=== PATIENT | male | born 1965 | race Caucasian/White ===

== ENCOUNTER 2025-07-08 13:19 | Inpatient (IN) ==
[2025-07-08] MEDS: ASPIRIN CHEW 324 MG PO STA (13:30)
[2025-07-08] MEDS: ONDANSETRON INJ 2 MG/ML 2 ML VIAL IV STA (13:31)
[2025-07-08] MEDS: ONDANSETRON INJ 2 MG/ML 2 ML VIAL ONE ×2 (13:31→16:02)
[2025-07-08] MEDS: SODIUM CHLORIDE 0.9% 1,000 ML IV ONE (13:38)
[2025-07-08] MEDS: NITROGLYCERIN SL 0.4 MG/TAB TAB SL STA (13:40)
[2025-07-08] MEDS: METOPROLOL TARTRATE 1 MG/ML VIAL IV STA (13:41)
[2025-07-08 13:44] LABS: Hematocrit (blood only) 49.2 % (42.0-52.0); Hemoglobin 16.9 g/dl (14.0-18.0); Immature Granulocytes # (auto) 0.06 K/uL (0.01-0.20); Immature Granulocytes % (auto) 0.3 %; Mean Corpuscular Hemoglobin 31.0 pg (25.0-34.0); Mean Corpuscular Volume 90.1 fL (80.0-100.0); Platelet Count 237 K/uL (130-400); RDW Standard Deviation 43.3 fL (36.4-46.3); Red Blood Count 5.46 M/uL (4.70-6.10); White Blood Count 17.36 K/ul (4.8-10.8)
--- NOTE | 2025-07-08 13:50 | XRay Report ---
XR chest 1V portable HISTORY: 60 years-old Male Chest pain, nonspecific COMPARISON: None TECHNIQUE: AP view the chest FINDINGS: Cardiac silhouette is enlarged. No pneumothorax, large pleural effusion or lobar airspace consolidati on. Mild coarsening of interstitium may be chronic. Bones appear grossly intact. Chronic appearing di stal right clavicular deformity. IMPRESSION: Cardiomegaly without acute process. ACT 112: Negative or not required by law. The above report was generated using voice recognition software. It may contain grammatical, syntax o r spelling errors. Electronically signed by: Rashad Red M.D. 07/08/2025 1:48 PM
[2025-07-08 14:01] LABS: Alanine Aminotransferase 74.0 U/L (7-52); Albumin Globulin Ratio 1.4 (0.9-2); Alkaline Phosphatase 86.0 U/L (34-104); Anion Gap 7.0 (3-11); Bilirubin,Total 0.8 mg/dl (0.2-1.0); Blood Urea Nitrogen 10.0 mg/dl (6-23); Calcium 10.0 mg/dl (8.6-10.3); Carbon Dioxide 28.0 mmol/L (21-32); Chloride 102.0 mmol/L (98-107); Creatinine Clr Calc Pharmacy 80.4 ml/min; Globulin 3.1 gm/dl (2.5-4.0); Glucose 136.0 mg/dl (70-99(Fasting)); Lipase 4.0 U/L (11-82); Potassium 4.1 mmol/L (3.5-5.1); Sodium 137.0 mmol/L (136-145); Total Protein 7.5 gm/dl (6.0-8.3)
--- NOTE | 2025-07-08 14:08 | Pre Anesthesia Assessment ---
Date of Service July 08, 2025 Pre Sedation Assessment Vital Signs Pulse Pulse Resp BP BP Pulse Ox O2 Del Method 07/08/25 13:41 102 H 139/89 07/08/25 13:37 105 H 07/08/25 13:32 105 H 19 138/89 95 Room Air 07/08/25 13:32 96 Room Air 07/08/25 13:25 94 Room Air 07/08/25 13:24 108 H 18 134/93 96 Room Air Cardiovascular RRR, no murmur, no edema + regular rate + S1 normal and + S2 normal Respiratory normal respiratory effort, lungs clear to auscultation Pre-Sedation Airway Assessment Smoking Status: Current every day smoker II III NPO Status Date of Last Intake of Fluids: 07/08/25 Procedure Planning Contraindications for Sedation: none Current Medications Reviewed: Yes Notes The planned sedation has been discussed with the patient. Informed Consent was obtained. I have identified the patient, determined the appropriateness of sedation and have assessed the patient immediately prior to the procedure. All medicine(s) and interventions are by my order.
[2025-07-08] MEDS: HEPARIN (PORCINE) 1000 UNIT/ML 10 ML (CATH LAB USE ONLY) ONE ×2 (14:54)
[2025-07-08] MEDS: MIDAZOLAM HCL 1 MG/ML 2ML VIAL ONE (14:54)
[2025-07-08] MEDS: OPTIRAY 350 ONE (14:55)
--- NOTE | 2025-07-08 14:55 | Post Anesthesia Assessment ---
Date of Service July 08, 2025 Post Sedation Assessment Vital Signs Pulse Pulse Resp BP BP Pulse Ox O2 Del Method 07/08/25 14:07 118/75 92 Nasal Cannula 07/08/25 13:41 102 H 139/89 07/08/25 13:37 105 H 07/08/25 13:32 105 H 19 138/89 95 Room Air 07/08/25 13:32 96 Room Air 07/08/25 13:25 94 Room Air 07/08/25 13:24 108 H 18 134/93 96 Room Air O2 Flow Rate 07/08/25 14:07 4 07/08/25 13:41 07/08/25 13:37 07/08/25 13:32 07/08/25 13:32 07/08/25 13:25 07/08/25 13:24 Recovery Score Activity: Moves 4 extremities Respiration: Deep Breath/Cough Circulation: +/-20% PreAnes Value Consciousness: Fully Awake Oxygen Saturation: > 92% On Room Air Discharge Sedation Level of Care: Higher Level of Care Post Sedation Plan On clinical assessment, the patient appears to have tolerated the sedation without complications. Patient is recovering as anticipated. Patient will continue to be monitored by nursing and may be discharged when sedation discharge criteria are met per below protocol. Upon Completions of procedure up to 15 minutes continue every 5 minute vital signs and the P.A.R. score; then discharge to a Phase I or Fast Track to Phase II per the following guidelines: * Discharge Patient to appropriate Phase II area if PAR is 8 or greater or return to pre- procedure baseline. The post - procedure orders will be as directed. * If PAR score is less than 8 or not return to pre-procedure baseline then patient will follow Phase I monitoring till PAR is reached for Phase II. The Phase I may be done in procedure room or may call to secure a Phase I area. * If naloxone or flumazenil are used for reversal, hold in Phase I for continued monitoring from when last reversal dose was given for a minimum of 60 minutes or longer pending the nurse and/or physician discretion of patient condition before discharge to Phase II. Please call the Sedation Physician to re-evaluate and complete post-note for discharge to Phase II area. Do NOT discharge from procedure sedation or Phase 1 until post- sedation evaluation note is complete by procedure /sedation MD Sedation Discharge Instructions to be given to the patient at discharge to home.
[2025-07-08] MEDS: PHENYLEPHRINE 100MCG/ML 5ML SYR ONE (14:56)
[2025-07-08] MEDS: EPTIFIBATIDE 2 MG/ML 10 ML VIAL (CATH LAB USE ONLY) IV ONE (14:56)
[2025-07-08] MEDS: NITROGLYCERIN/D5W 100MCG/ML 20ML SYR ONE (14:56)
[2025-07-08] MEDS: EPTIFIBATIDE 0.75 MG/ML 75MG VIAL (CATH LAB USE ONLY) IV ONE (14:57)
[2025-07-08] MEDS: CLOPIDOGREL BISULFATE 300 MG TAB ONE (14:58)
--- NOTE | 2025-07-08 15:12 | Cardiac Catheterization ---
Cardiac Cath Procedure Full Procedure Date July 08, 2025 Pre-Procedure Diagnosis Pre-Procedure Diagnosis: STEMI AUC Score AUC Score: 9 Post-Procedure Diagnosis Post-Procedure Diagnosis: Severe CAD, Successful PCI, Decreased LV Systolic Function and Elevated Intracardiac Pressures Procedure(s) Performed Procedure(s) Performed: Coronary Angiography, Left Heart Cath, LV Angiography and PTCA Dispensing Lead Marvin Colunga MD Estimated Blood Loss Estimated Blood Loss: 10 cc Summary of Findings culprit: 1% occlusion of the proximal LAD Left Main: Large artery which divides into LAD, ramus intermedius, and circumflex. There is no significant angiographic disease LAD: Large artery takeoff. It is initially 100% occluded. After PCI it is seen to give rise to 1 small diagonal vessel. It does supply multiple septal arteries and Continues to the true apex. Ramus intermedius: Medium sized branching artery with a relatively focal 40 to 50% proximal lesion Circumflex: Medium to large artery gives rise to a small OM1 and a medium sized OM 2. There is no significant angiographic disease RCA: Medium to large artery gives rise to a small PDA and [address] branches. There is 40% proximal disease. The mid AV groove has a focal 30 to 40% stenosis. The branch vessels have mild luminal changes. EF: 25 to 30% There is anterior wall and apical wall akinesis LVEDP: 20 mmHg Procedure details This gentleman was brought to the [facility] emergently. Risks and benefits were discussed. Risks included injury or even . He understood these risks and informed consent was signed and witnessed. He is placed supine on the table. He was prepped and draped in usual sterile fashion. I performed conscious sedation. He was monitored with [id number] contact and hemodynamic monitoring for the entirety of the case. Prior to starting timeout confirmed patient and procedure. 2 mL 1% lidocaine was given the right wrist for local anesthesia. Access to the right radial artery was made using modified Seldinger technique and a micropuncture kit. Eventually a 5 6 Green[place]ic slender sheath was advanced over the wire. All catheter exchanges were made over a wire. A JL 4 was used to take a diagnostic shot of the left system. A JR4 was used for LVEDP measurement and to image of the right system. I then chose an EBU 3.5 guide and a run-through. Heparin was given. ACT was monitored. The run-through was directed with some effort into the LAD territory. Initially I passed a 3.0 NC balloon and no meaningful flow was regained. At the very proximal edge of the occlusion I inflated the balloon to 8 laura. I then passed a 2.0 timesx 12 compliant balloon to the mid anterior wall lesion. Multiple inflations did not restore meaningful flow to the apex. I then passed an export catheter over the wire and gave an injection into the export catheter confirming vessel patency downstream and that the wire was truly in the LAD. I then stented from distal to proximal with a 2.5 x 38 drug-eluting stent at 12 laura followed by a 2.5 x 30 drug-eluting stent at 13 laura followed by a 2.75 x 15 drug-eluting stent deployed at 13 laura. The proximal stent was postdilated with a 3.0 NC balloon. Final angiogram showed complete filling though TIANA II flow to the apical LAD. Radial band was used for hemostasis of the wrist Hemodynamics Rest Ao:: 98/72 Final Ao: 100/76 LV: 115/6, LVEDP 20-25 to 30 mmHg Recommendations Recommendations: Medical Therapy and/or Counseling and Management Recommendatons ( Dual antiplatelet therapy for target of at least 1 year echocardiogram 4 better assessment of LV function. Guideline directed medical therapy for LV systolic dysfunction. Likely will need diuretic therapy given LVEDP is elevated. Maximize lipid-lowering medications and modify risk factors aggre) Radiation Exposure (mGy) 14.3 minutes Contrast (mls) 140 Procedural Complication(s) none I attest to the content of the Intraoperative Record and any orders documented therein. Any exceptions are noted below. ACC Data: [facility] Cardiac Status Clinical evaluation leading to the procedure CAD Presenation: STEMI STEMI OR Non-STEMI Symptom Onset Date: 07/07/25 Symptom Onset Time: 16:00 Coronary Anatomy Dominant: Right LAD (% Stenosis): Proximal ( 100%) RCA (% Stenosis): Proximal ( 40 %) and Mid (30 to 40%) Ramus (% Stenosis): Proximal ( 40 to 50%) Left Ventricular Angiography EF (%): 25-30% Wall Motion: Anterior (Akinetic) and Apical (Akinetic) Diagnostic Physicians Name: Marvin Colunga MD Closure Device Recommendations: Medical Therapy and/or Counseling and Management Recommendatons ( Dual antiplatelet therapy for target of at least 1 year echocardiogram 4 better assessment of LV function. Guideline directed medical therapy for LV systolic dysfunction. Likely will need diuretic therapy given LVEDP is elevated. Maximize lipid-lowering medications and modify risk factors aggre) PCI Indication: PCI for STEMI - Unstable ( ongoing chest pain symptoms less than 12 hours from stated onset) First Noted: First EKG Lesion Segment Name: proximal LAD Stenosis Prior to Rx (%): 100 Pre-Procedure TIANA Flow: 0 Lesion Complexity: High/C Thrombus Present: Yes Guidewire Across Lesion: Yes
--- NOTE | 2025-07-08 15:20 | Cardiology Consultation ---
Date of Consultation July 08, 2025 Assessment & Plan (1) ST elevation myocardial infarction (STEMI) of anterior wall: (2) LV dysfunction: (3) Hyperlipidemia: (4) Smoker: (5) Xanthelasma of eyelid, bilateral: (6) Severe obstructive sleep apnea: Plan unfortunately this is a very late presentation of his anterior AL he will require dual antiplatelet therapy, statin treatment for heart failure prevention including beta-king in all likelihood Entresto as well as Jardiance diuretics to keep heart failure under control. Smoking cessation diet exercise.. Will have to wait and see how he does on medical therapy. Unfortunately because of his late presentation he may. Close cardiac follow-up as well as cardiac rehab. Are strongly recommended to have significant LV dysfunction even despite being able to get the LAD open. The remainder of his coronary tree only had mild plaque. History of Present Illness Reason for Consultation: Acute AL History of Present Illness 60-year-old man without prior cardiac issues who presented to the emergency room with several days of not feeling well. His initial EKG shows Q waves in the lateral as well as anteroseptal leads. He reported having only mild chest discomfort but reports that this has been going on for more than 24 hours. According to his family his daughter girlfriend and son-in-law for the last several days he has had some shortness of breath. He was observed to look more short of breath than normal. He is a lifelong smoker has hypercholesterolemia was recently diagnosed with sleep apnea and was supposed to start wearing CPAP but has not started wearing it. He does not have a regular family doctor that he follows with. He has not had any other cardiac testing at this point. He was taken to the [facility] acutely by Dr. Marvin Colunga and was found to have a proximal total occluded LAD. Dr. Colunga was able to get a wire past the occlusion and eventually implant 3 stents in the LAD with some difficulty. Patient's blood pressure was running 90 to about 110 systolic in the [facility]. At the end of the case a ventriculogram was done and this showed severe anteroa pical hypo to akinesis. His initial troponin is still pending however his transaminases are elevated also suggesting that this AL has been going on for greater than 24 to perhaps 48 hours. 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 I ended up having surgery." Benign colonic polyp hx Diarrhea hx pt denies at this time Anxiety Surgical History Hx of arthroscopy of right knee x2 Hx of colonoscopy History of bowel resection "10 years ago" History of esophagogastroduodenoscopy Hx of tonsillectomy H/O shoulder surgery Right S/P ACL surgery Right - x2 ACL x2 Arthroscopic Family History Other No pertinent family history Denies family history of Ovarian cancer Prostate cancer Diabetes Bipolar disorder Myocardial infarction Breast cancer COPD (chronic obstructive pulmonary disease) Colorectal cancer Hypertension Social History Smoking Status: Current every day smoker Tobacco Type: Cigarettes Age Started Using Tobacco: 50; packs per day: 0.5; Cigarettes Per Day: 10-15; Second Hand Exposure: No; Do You Dip or Chew Tobacco: No; Hx Alcohol Use: Yes Hx Substance Use: Yes Last Used Substance Other:: remote hx Preferred Language: Bulgarian Communication Ability: Effective Telephone Answerer Required: No Beliefs That Will Affect Care: None marital status: Current Living Situation: Alone Current Living Situation Comment: And children current occupational status: employed 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 Feels Safe at Home: Yes caffeine: Yes (coffee and tea) Dental Care, Regularly: No Physical Activity Frequency: Does not Exercise Seatbelt Use: sometimes Sunscreen Use: No Assistive Devices: Glasses Review of Systems Review of Systems: All systems reviewed & are unremarkable except as noted in HPI & below Physical Exam Physical Exam: Patient seen while still in the [facility] Respiratory: Lying flat on [facility] table Cardiovascular: Summation gallop Results & Data Vital Signs (Past 12 Hours) Vital Signs Pulse Pulse Resp BP BP Pulse Ox O2 Del Method 07/08/25 14:07 118/75 92 Nasal Cannula 07/08/25 13:41 102 H 139/89 07/08/25 13:37 105 H 07/08/25 13:32 105 H 19 138/89 95 Room Air 07/08/25 13:32 96 Room Air 07/08/25 13:25 94 Room Air 07/08/25 13:24 108 H 18 134/93 96 Room Air O2 Flow Rate 07/08/25 14:07 4 07/08/25 13:41 07/08/25 13:37 07/08/25 13:32 07/08/25 13:32 07/08/25 13:25 07/08/25 13:24 Laboratory Results Abnormal lab results 07/08/25 07/08/25 Range/Units 13:29 13:31 WBC 17.36 H (4.8-10.8) K/ul Neut # (Auto) 14.02 H (1.40-6.50) K/uL Swift # (Auto) 1.28 H (0.11-0.59) K/uL BUN/Creatinine Ratio 8.3 L (10-20) Glucose 136 H (70-99(Fasting)) mg/dl POC Glucose (other) 133 H (70-99) mg/dl AST 375 H (13-39) U/L ALT 74 H (7-52) U/L Lipase 4 L (11-82) U/L ECG Additional Comments: Normal sinus rhythm lateral as well as anteroseptal Q waves
--- NOTE | 2025-07-08 15:21 | Emergency Department Note ---
Impression & Plan ST elevation TX (STEMI), Chest pain, Vomiting ED Provider Note NAME: DESMOND SAAVEDRA AGE: 60 SEX: M : 1965 ARRIVES VIA: Walk-In INFORMANT: Patient ED PROVIDER(S): Stef Harley DO CHIEF COMPLAINT: chest pain HPI: Patient is a 60-year-old male who presents ER for chest pain which has been constant yesterday across his chest. Associated with nausea and vomiting and diaphoresis. Girlfriend notes that he has not been feeling well when she went over to find him today. He notes that he still has the pain but is much better. Denies any belly pain but admits to feeling sick to his stomach. No dysuria urgency or frequency. No focal weakness in the arms or legs. ADDITIONAL HISTORY OBTAINED: Per HPI Chronic Medical/Social Conditions Affecting Care: Per HPI PAST MEDICAL HISTORY:See Below PAST SURGICAL HISTORY:See Below FAMILY HISTORY:See Below SOCIAL HISTORY:See Below HOME MEDICATIONS:See Below ALLERGIES:See Below VITALS:See Below PHYSICAL EXAMINATION: GENERAL: Sitting up in bed, alert, ill-appearing, dry heaving EYE EXAM: normal conjunctiva. OROPHARYNX: Dry mucous membranes LUNGS: Clear to auscultation. Normal chest wall mechanics HEART: no murmurs, S1 normal and S2 normal ABDOMEN: abdomen soft, non-tender, normo-active bowel sounds, no masses, no rebound or guarding. BACK: Back is symmetrical on inspection and there is no deformity, no midline tenderness, no CVA tenderness. SKIN: no rashes and no bruising UPPER EXTREMITIES: upper extremities are grossly normal. LOWER EXTREMITIES: No pitting edema. NEURO EXAM: Normal sensorium, cranial nerves II-XII grossly intact, normal speech, no gross weakness of arms, no gross weakness of legs. MEDICAL DECISION MAKING: Patient is a 60-year-old male who presents ER for the above-stated complaint. IV was established and blood work is obtained. Labs show leukocytosis 17,000. No significant anemia. D-dimer was negative. BMP along with LFTs bilirubin was remarkable for an AST of 375 and ALT of 74. Lipase was normal. Troponin did not result upon completion of the note however it was greater than 27,000 per report from lab as it needs to be diluted again. Heart alert was called upon arrival and evaluation of the EKG. No old to compare to. Patient was given aspirin, nitro and Lopressor as well as IV bolus of heparin. Consults/Care Managements Discussions: Per [facility] Triage Nursing notes reviewed. Limited review of prior medical records performed Vital Signs: reviewed and remarkable for no significant abnormalities Differential diagnosis: Cardiac ischemia, aortic dissection, pulmonary embolism, pneumothorax, pneumonia, pericarditis, myocarditis, esophageal rupture, GERD, cholecystitis, pancreatitis, musculoskeletal, as well as other pathologies. ER treatment provided: See below Diagnostics interpreted by me include EKG and cardiac monitoring as listed below: -Cardiac Monitoring: An order was placed for continuous cardiac monitoring. The monitor shows a rate of 90 with sinus rhythm. -ECG: Sinus tachycardia rate of 103 ST elevations in the high lateral leads ST depressions in the inferior leads Q waves in the high lateral and anterior leads No old compare to -Laboratory studies:Interpreted by me as stated above in MDM and shown below. Imaging studies: Xrays: As interpreted by me: Portable AP upright 1 view of the chest shows no focal M-Trate CTs show: none Procedures:none Critical Care: I have personally spent 35 minutes of critical care time in the direct management of this patient. This includes bedside care, interpretation of diagnostic studies, and testing, discussion with consultants, patient, and family members, and other required patient management activities. This 35 minutes is in excess of all separately billable procedures. Past Med/Surg History Problem List (Updated 07/08/25 @ 15:16 by Anuradha Hopkins DO) LV dysfunction ST elevation myocardial infarction (STEMI) of anterior wall History of colon polyps Nocturnal hypoxemia Severe obstructive sleep apnea Hypersomnia History of kidney stones Right knee pain Insomnia Chronic reflux esophagitis GI symptoms Nasal congestion Impaired fasting glucose Hyperlipidemia Smoker 21 patient reports smoking for 5 years after his divorce. 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 I ended up having surgery." Benign colonic polyp hx Diarrhea hx pt denies at this time Anxiety Surgical History Hx of arthroscopy of right knee x2 Hx of colonoscopy History of bowel resection "10 years ago" History of esophagogastroduodenoscopy Hx of tonsillectomy H/O shoulder surgery Right S/P ACL surgery Right - x2 ACL x2 Arthroscopic Family History Other No pertinent family history Denies family history of Ovarian cancer Prostate cancer Diabetes Bipolar disorder Myocardial infarction Breast cancer COPD (chronic obstructive pulmonary disease) Colorectal cancer Hypertension Social History Smoking Status: Current every day smoker Tobacco Type: Cigarettes Age Started Using Tobacco: 50; packs per day: 0.5; Cigarettes Per Day: 10-15; Second Hand Exposure: No; Do You Dip or Chew Tobacco: No; Hx Alcohol Use: Yes Hx Substance Use: Yes Last Used Substance Other:: remote hx Preferred Language: Martiniquais Communication Ability: Effective Ict Sales Assistant Required: No Beliefs That Will Affect Care: None marital status: Current Living Situation: Alone Current Living Situation Comment: And children current occupational status: employed 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 Feels Safe at Home: Yes caffeine: Yes (coffee and tea) Dental Care, Regularly: No Physical Activity Frequency: Does not Exercise Seatbelt Use: sometimes Sunscreen Use: No Assistive Devices: Glasses Allergies Allergies Allergy/AdvReac Type Severity Reaction Status Date / Time morphine AdvReac Intermediate Vomiting Verified 02/16/25 10:10 Home Meds Previous Rx's Medication Instructions Recorded nicotine 7 mg/24 hr daily 1 patch transdermal Q24H #28 ea 09/13/24 transdermal patch Results & Data (ED) Vital Signs Vital Signs - 24 hr 07/08/25 13:24 07/08/25 13:25 07/08/25 13:32 Pulse Rate 108 H Pulse Rate [Apical] Respiratory Rate 18 Blood Pressure 134/93 Blood Pressure [Right Arm] Blood Pressure Mean 106 Blood Pressure Mean [Right Arm] Pulse Oximetry 96 94 96 Oxygen Delivery Method Room Air Room Air Room Air Sepsis Recent Fever Within 48 Hours No Sepsis New/Unexplained Change in Mental Status No Sepsis Action Taken by Nursing No Action Required 07/08/25 13:32 07/08/25 13:37 07/08/25 13:41 Pulse Rate 105 H 102 H Pulse Rate [Apical] 105 H Respiratory Rate 19 Blood Pressure 139/89 Blood Pressure [Right Arm] 138/89 Blood Pressure Mean Blood Pressure Mean [Right Arm] 105 Pulse Oximetry 95 Oxygen Delivery Method Room Air Sepsis Recent Fever Within 48 Hours Sepsis New/Unexplained Change in Mental Status Sepsis Action Taken by Nursing Laboratory Data 07/08/25 13:29 07/08/25 13:29 Lab Results 07/08/25 07/08/25 Range/Units 13:29 13:31 WBC 17.36 H (4.8-10.8) K/ul RBC 5.46 (4.70-6.10) M/uL Hgb 16.9 (14.0-18.0) g/dl POC Hgb 17.7 (14.0-18.0) g/dl Hct 49.2 (42.0-52.0) % POC Hct 52 (42-52) % MCV 90.1 (80.0-100.0) fL MCH 31.0 (25.0-34.0) pg MCHC 34.3 (32.0-36.0) g/dL RDW Std Deviation 43.3 (36.4-46.3) fL RDW Coeff of Patsy 13.2 (11.5-14.5) % Plt Count 237 (130-400) K/uL MPV 9.7 (9.4-12.4) fL Immature Gran % (Auto) 0.3 % Neut % (Auto) 80.7 % Lymph % (Auto) 11.1 % Kidder % (Auto) 7.4 % Eos % (Auto) 0.2 % Baso % (Auto) 0.3 % Neut # (Auto) 14.02 H (1.40-6.50) K/uL Lymph # (Auto) 1.92 (1.20-3.40) K/uL Kidder # (Auto) 1.28 H (0.11-0.59) K/uL Eos # (Auto) 0.03 (0.00-0.50) K/uL Baso # (Auto) 0.05 (0.00-0.20) K/uL Immature Gran # (Auto) 0.06 (0.01-0.20) K/uL D-Dimer 360 (0-500) ug/L FEU POC Sodium 139 (135-144) mmol/L Sodium 137 (136-145) mmol/L POC Potassium 4.1 (3.3-5.0) mmol/L Potassium 4.1 (3.5-5.1) mmol/L POC Chloride 102 (101-112) mmol/L Chloride 102 (98-107) mmol/L Carbon Dioxide 28 (21-32) mmol/L POC Total CO2 24 (24-31) mmol/L Anion Gap 7 (3-11) POC Anion Gap 18.0 (16-25) mmol/L POC BUN 8 (7-18) mg/dl BUN 10 (6-23) mg/dl Creatinine 1.21 (0.6-1.4) mg/dl POC Creatinine 1.2 (0.6-1.3) mg/dl Est Cr Clr Drug Dosing 80.4 ml/min eGFR 69.40 BUN/Creatinine Ratio 8.3 L (10-20) Glucose 136 H (70-99(Fasting)) mg/dl POC Glucose (other) 133 H (70-99) mg/dl Calcium 10.0 (8.6-10.3) mg/dl POC Ioniz Calcium Bonny 1.18 (1.12-1.32) mmol/l Total Bilirubin 0.8 (0.2-1.0) mg/dl AST 375 H (13-39) U/L ALT 74 H (7-52) U/L Alkaline Phosphatase 86 (34-104) U/L Total Protein 7.5 (6.0-8.3) gm/dl Albumin 4.4 (3.4-5.0) gm/dl Globulin 3.1 (2.5-4.0) gm/dl Albumin/Globulin Ratio 1.4 (0.9-2) Lipase 4 L (11-82) U/L Administered Medications Discontinued Medications Aspirin (Aspirin Chew 324 Mg) 324 mg PO NOW STA Stop: 07/08/25 13:28 Last Admin: 07/08/25 13:30 Dose: 324 mg Documented By: PADMAJA Clopidogrel Bisulfate (Clopidogrel Bisulfate 300 Mg Tab) Confirm Administered Dose 600 mg .ROUTE .STK-MED ONE Stop: 07/08/25 14:52 Last Admin: 07/08/25 14:58 Dose: 600 mg Documented By: ALIZE Eptifibatide (Eptifibatide 2 Mg/Ml 10 Ml Vial (Doorperson Or Luggage Porter Use Only)) Confirm Administered Dose 40 mg IV .STK-MED ONE Stop: 07/08/25 14:41 Last Admin: 07/08/25 14:56 Dose: 10.2 ml Documented By: ALIZE Eptifibatide (Eptifibatide 0.75 Mg/Ml 75mg Vial (Doorperson Or Luggage Porter Use Only)) Confirm Administered Dose 75 mg IV .STK-MED ONE Stop: 07/08/25 14:41 Last Admin: 07/08/25 14:57 Dose: 75 mg Documented By: ALIZE Fentanyl Citrate (Fentanyl Citrate Pf 100 Mcg/2 Ml Vial) Confirm Administered Dose 100 mcg .ROUTE .STK-MED ONE Stop: 07/08/25 13:53 Last Increment: 07/08/25 14:54 Dose: 75 mcg Documented By: ALIZE Heparin Sodium (Porcine) (Heparin (Porcine) 1000 Unit/Ml 10 Ml (Doorperson Or Luggage Porter Use Only)) Confirm Administered Dose 10,000 units .ROUTE .STK-MED ONE Stop: 07/08/25 13:53 Last Admin: 07/08/25 14:54 Dose: 10,000 units Documented By: ALIZE Heparin Sodium (Porcine) (Heparin (Porcine) 1000 Unit/Ml 10 Ml (Doorperson Or Luggage Porter Use Only)) Confirm Administered Dose 10,000 units .ROUTE .STK-MED ONE Stop: 07/08/25 14:22 Last Admin: 07/08/25 14:54 Dose: 1,000 units Documented By: ALIZE Heparin Sodium/Sodium Chloride (Heparin In Nss Infusion 1000 Unit/500 Ml (2 U/Ml) Bag) Confirm Administered Dose 3,000 units IV .STK-MED ONE Stop: 07/08/25 13:53 Last Admin: 07/08/25 14:55 Dose: 3,000 units Documented By: ALIZE Sodium Chloride (Nss) 1,000 mls @ 999 mls/hr IV .Q1H1M ONE Stop: 07/08/25 14:36 Last Admin: 07/08/25 13:38 Dose: 999 mls/hr Documented By: CHUCK Ioversol (Optiray 350) Confirm Administered Dose 1 ml .ROUTE .STK-MED ONE Stop: 07/08/25 13:53 Last Admin: 07/08/25 14:55 Dose: 140 ml Documented By: ALIZE Metoprolol Tartrate (Metoprolol Tartrate 1 Mg/Ml Vial) 5 mg IV NOW STA Stop: 07/08/25 13:37 Last Admin: 07/08/25 13:41 Dose: 5 mg Documented By: CHUCK Midazolam HCl (Midazolam Hcl 1 Mg/Ml 2ml Vial) Confirm Administered Dose 2 mg .ROUTE .STK-MED ONE Stop: 07/08/25 13:52 Last Admin: 07/08/25 14:54 Dose: 2 mg Documented By: ALIZE Nitroglycerin (Nitroglycerin Sl 0.4 Mg/Tab Tab) 0.4 mg SL NOW STA Stop: 07/08/25 13:37 Last Admin: 07/08/25 13:40 Dose: 0.4 mg Documented By: CHUCK Nitroglycerin/Dextrose (Nitroglycerin/D5w 100mcg/Ml 20ml Syr) Confirm Administered Dose 2,000 mcg .ROUTE .STK-MED ONE Stop: 07/08/25 13:53 Last Admin: 07/08/25 14:56 Dose: 2,000 mcg Documented By: ALIZE Ondansetron HCl (Ondansetron Inj 2 Mg/Ml 2 Ml Vial) 4 mg IV NOW STA Stop: 07/08/25 13:30 Last Admin: 07/08/25 13:31 Dose: 4 mg Documented By: PADMAJA Ondansetron HCl (Ondansetron Inj 2 Mg/Ml 2 Ml Vial) Confirm Administered Dose 4 mg .ROUTE .STK-MED ONE Stop: 07/08/25 13:31 Last Admin: 07/08/25 13:31 Dose: Not Given Documented By: PADMAJA Phenylephrine HCl (Phenylephrine 100mcg/Ml 5ml Syr) Confirm Administered Dose 100 mcg .ROUTE .STK-MED ONE Stop: 07/08/25 14:22 Last Admin: 07/08/25 14:56 Dose: 500 mcg Documented By: ALIZE Co-signed By: BOOKER Imaging Data Radiologist's Impression: Chest X-Ray 07/08/25 13:27 XR chest 1V portable HISTORY: 60 years-old Male Chest pain, nonspecific COMPARISON: None TECHNIQUE: AP view the chest FINDINGS: Cardiac silhouette is enlarged. No pneumothorax, large pleural effusion or lobar airspace consolidation. Mild coarsening of interstitium may be chronic. Bones appear grossly intact. Chronic appearing distal right clavicular deformity. IMPRESSION: Cardiomegaly without acute process. ACT 112: Negative or not required by law. The above report was generated using voice recognition software. It may contain grammatical, syntax or spelling errors. Electronically signed by: Rashad Red M.D. 07/08/2025 1:48 PM Discharge Plan Visit Data Chief Complaint: Chest Pain Stated Complaint: CHEST HURT YEST, PALE, CONFUSION, BURNING CARPETS ED Provider: Stef Harley Discharge Problem: ST elevation TX (STEMI), Chest pain, Vomiting Patient Disposition: Admitted As Inpatient Condition: Critical Discharge Instructions Interventions: ED Discharge Assessment Last Done: 07/08/25 14:07 Discharge Problem: ST elevation TX (STEMI) Qualifiers: Involved coronary artery: unspecified coronary artery Qualified Code(s): I21.3 - ST elevation (STEMI) myocardial infarction of unspecified site Chest pain Qualifiers: Chest pain type: unspecified Qualified Code(s): R07.9 - Chest pain, unspecified Vomiting Qualifiers: Vomiting type: unspecified Nausea presence: unspecified Qualified Code(s): R 11.10 - Vomiting, unspecified
--- NOTE | 2025-07-08 15:24 | Critical Care Consultation ---
Date of Consultation July 08, 2025 Assessment & Plan (1) ST elevation myocardial infarction (STEMI) of anterior wall: (2) Severe obstructive sleep apnea: (3) Smoker: (4) Nausea & vomiting: (5) Xanthelasma of eyelid, bilateral: Plan -- STEMI S/p 3 stents to the LAD on 07/08/2025 Continue dual antiplatelet therapy Add beta-blockers and CHRISTOPHER inhibitor as blood pressure tolerates Trend EKG and troponins -- Acute hypoxic respiratory failure Likely secondary to pulmonary edema from STEMI -- ANIVAL Polysomnography 10/24/2024: AHI 67 Continue with BiPAP/CPAP nightly and as needed shortness of breath --Current smoker > [id number] smoking history, currently smoking a pack a day Reports quitting explained the patient in depth Recommend outpatient PFT as well as screening CAT scan of the chest --Prophylaxis VTE: IPC, start heparin tomorrow GI: Pantoprazole Lines: Peripheral Diet: Cardiac Plan: Strict ins/out Monitor troponin trend EKG CPAP nightly and as needed shortness of breath Follow-up lipid profile, 2D echo Patient has history of noncompliance. Importance of taking medication moving forward especially DAPT given the stent explained to the patient as well as patient's family at bedside Patient did complain of dry heaving and vomiting for which Zofran was started Repeat EKG was done which did not show any significant change compared to post cath EKG Given that he is wheezing a little bit we will start the patient on formoterol and budesonide nebulized On discharge he will benefit from Stiolto to be used on a daily basis Recommend outpatient pulmonary function test as well as screening CAT scan of the chest given the smoking history Case discussed with cardiology I have personally spent 36 minutes of critical care time in the direct management of this patient. This is a life/limb threatening event. This includes time spent evaluating patient, direct bedside care, chart review, placing orders, interpretation of diagnostic studies, discussion with consultants, patient, and family members, as well as other required patient management activities. This time is exclusive of all separately billable procedures, and teaching time and separate from and in addition to any other critical care service time. Please note the above document was generated using voice recognition software. It may contain grammatical, syntax or spelling errors. History of Present Illness Attending Physician: Tg Solorzano MD History of Present Illness 60-year-old male came to the hospital with chest pain, was found to have NSTEMI and sent to the Desktop Analyst which needed 3 stents in the LAD Past medical history: Dyslipidemia, ANIVAL, active smoker At the time of examination patient's daughter as well as girlfriend were in the room Patient blood pressure was in the 120s heart rate in the 80s He was saturating 92-93% on room air He stated that the chest pain has improved. It was 1/10 on the pain scale. He has been having issues with chest discomfort with pain 7/10 since yesterday He took aspirin ibuprofen for it but it did not help. Denies any dizziness, lightheadedness right now. Complains of generalized lethargy and weakness. Denies any shortness of breath right now No cough No fever or chills at home No dysuria or diarrhea Social history: > [id number] smoking history, currently smoking a pack a day. 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 I ended up having surgery." Benign colonic polyp hx Diarrhea hx pt denies at this time Anxiety Surgical History Hx of arthroscopy of right knee x2 Hx of colonoscopy History of bowel resection "10 years ago" History of esophagogastroduodenoscopy Hx of tonsillectomy H/O shoulder surgery Right S/P ACL surgery Right - x2 ACL x2 Arthroscopic Family History Other No pertinent family history Denies family history of Ovarian cancer Prostate cancer Diabetes Bipolar disorder Myocardial infarction Breast cancer COPD (chronic obstructive pulmonary disease) Colorectal cancer Hypertension Social History Smoking Status: Current every day smoker Tobacco Type: Cigarettes Age Started Using Tobacco: 50; packs per day: 0.5; Cigarettes Per Day: 20; Second Hand Exposure: No; Do You Dip or Chew Tobacco: No; Hx Alcohol Use: Yes Alcohol type: beer and hard liquor Hx Substance Use: No Preferred Language: Nauruan Communication Ability: Effective Blankbook Stitching Machine Operator Required: No Beliefs That Will Affect Care: None marital status: Current Living Situation: Alone Current Living Situation Comment: And children current occupational status: employed 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 Other Information That Helps Us Care for You: No Feels Safe at Home: Yes caffeine: Yes (coffee and tea) Dental Care, Regularly: No Physical Activity Frequency: Does not Exercise Seatbelt Use: sometimes Sunscreen Use: No Assistive Devices: Glasses Review of Systems 2 Review of Systems: All systems reviewed & are unremarkable except as noted in HPI & below Physical Exam 2 Physical Exam: Constitutional: No acute distress HEENT: EOMI, PERRLA, short thick neck, xanthelasma bilateral eyelids superior and inferior Respiratory system: Decreased air entry bilaterally, no rhonchi, positive mild crackles bilateral lower lobes, mild rhonchi bilaterally CVS: S1-S2 positive, no murmurs or gallops Abdomen: Soft, nontender, nondistended, positive bowel sounds x4, obese Extremities: +2 pulses bilaterally radialis/ dorsalis pedis, no cyanosis, no edema Neuro: Awake alert oriented x3 Psych: Normal mood and affect G/U: No Feldman Skin: no rashes, warm and dry Lymphatic: no cervical or axillary lymphadenopathy Results & Data Results & Data Vital Signs (Past 12 Hours) Vital Signs Pulse Pulse Resp BP BP Pulse Ox O2 Del Method 07/08/25 14:07 118/75 92 Nasal Cannula 07/08/25 13:41 102 H 139/89 07/08/25 13:37 105 H 07/08/25 13:32 105 H 19 138/89 95 Room Air 07/08/25 13:32 96 Room Air 07/08/25 13:25 94 Room Air 07/08/25 13:24 108 H 18 134/93 96 Room Air O2 Flow Rate 07/08/25 14:07 4 07/08/25 13:41 07/08/25 13:37 07/08/25 13:32 07/08/25 13:32 07/08/25 13:25 07/08/25 13:24 Laboratory Results 07/08/25 13:29 07/08/25 13:29 Coding Level of Care Code 19861 CRITICAL CARE 1ST 30-74M Diagnoses ST elevation myocardial infarction (STEMI) of anterior wall I21.09 Severe obstructive sleep apnea G47.33 Smoker F17.200 Nausea & vomiting R11.2 Xanthelasma of eyelid, bilateral H02.63; H02.66
[2025-07-08] MEDS: ONDANSETRON INJ 2 MG/ML 2 ML VIAL IV PRN (16:02)
[2025-07-08 16:53] LABS: Magnesium 2.1 mg/dl (1.7-2.4)
--- NOTE | 2025-07-08 16:56 | History & Physical Report ---
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 Associated nausea, vomiting and diaphoresis. He denies any history of heart attack or stroke. Pain has been constant. Nothing making it better or worse. Severity 09/07, currently / post cardiac cath. He smokes a pack a day but denies any diabetes, hypertension or high cholesterol. Patient seen post cardiac cath. Allergies Allergy/AdvReac Type Severity Reaction Status Date / Time morphine AdvReac Intermediate Vomiting Verified 02/16/25 10:10 Home Medications Medication Instructions Recorded Confirmed Type nicotine 7 mg/24 hr daily 1 patch transdermal Q24H #28 ea 09/13/24 02/16/25 Rx transdermal patch Past Med/Surg History Problem List (Updated 07/08/25 @ 16:43 by Malgorzata Victor MD, [facility]) Nausea & vomiting LV dysfunction ST elevation myocardial infarction (STEMI) of anterior wall History of colon polyps Nocturnal hypoxemia Severe obstructive sleep apnea Hypersomnia History of kidney stones Right knee pain Insomnia Chronic reflux esophagitis GI symptoms Nasal congestion Impaired fasting glucose Hyperlipidemia Smoker 07-22-19 patient reports smoking for 5 years after his divorce. 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 I ended up having surgery." Benign colonic polyp hx Diarrhea hx pt denies at this time Anxiety Surgical History Hx of arthroscopy of right knee x2 Hx of colonoscopy History of bowel resection "10 years ago" History of esophagogastroduodenoscopy Hx of tonsillectomy H/O shoulder surgery Right S/P ACL surgery Right - x2 ACL x2 Arthroscopic Family History Other No pertinent family history Denies family history of Ovarian cancer Prostate cancer Diabetes Bipolar disorder Myocardial infarction Breast cancer COPD (chronic obstructive pulmonary disease) Colorectal cancer Hypertension Social History Smoking Status: Current every day smoker Tobacco Type: Cigarettes Age Started Using Tobacco: 50; packs per day: 0.5; Cigarettes Per Day: 20; Second Hand Exposure: No; Do You Dip or Chew Tobacco: No; Hx Alcohol Use: Yes Alcohol type: beer and hard liquor Hx Substance Use: No Preferred Language: Urdu Communication Ability: Effective 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: No Beliefs That Will Affect Care: None marital status: Current Living Situation: Alone Current Living Situation Comment: And children current occupational status: employed 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 Other Information That Helps Us Care for You: No Feels Safe at Home: Yes caffeine: Yes (coffee and tea) Dental Care, Regularly: No Physical Activity Frequency: Does not Exercise Seatbelt Use: sometimes Sunscreen Use: No Assistive Devices: Glasses Physical Exam Constitutional: WD/WN, vitals as above ENMT: external ear and nose normal, oropharynx normal Respiratory: normal respiratory effort, lungs clear to auscultation Cardiovascular: RRR, no murmur, no edema Gastrointestinal (Abdomen): normal bowel sounds, soft, nontender, no hepatosplenomegaly Results & Data Results & Data Vital Signs (Past 12 Hours) Vital Signs Temp Pulse Pulse Resp BP BP BP 07/08/25 15:15 37.0 C 82 16 121/86 07/08/25 14:07 118/75 07/08/25 13:41 102 H 139/89 07/08/25 13:37 105 H 07/08/25 13:32 105 H 19 138/89 07/08/25 13:32 07/08/25 13:25 07/08/25 13:24 108 H 18 134/93 Pulse Ox O2 Del Method O2 Flow Rate 07/08/25 15:15 93 Room Air 07/08/25 14:07 92 Nasal Cannula 4 07/08/25 13:41 07/08/25 13:37 07/08/25 13:32 95 Room Air 07/08/25 13:32 96 Room Air 07/08/25 13:25 94 Room Air 07/08/25 13:24 96 Room Air Laboratory Results Abnormal lab results 07/08/25 07/08/25 07/08/25 Range/Units 13:29 13:31 15:36 WBC 17.36 H (4.8-10.8) K/ul Neut # (Auto) 14.02 H (1.40-6.50) K/uL [place] # (Auto) 1.28 H (0.11-0.59) K/uL BUN/Creatinine Ratio 8.3 L (10-20) Glucose 136 H (70-99(Fasting)) mg/dl POC Glucose 125 H (70-99) mg/dl POC Glucose (other) 133 H (70-99) mg/dl AST 375 H (13-39) U/L ALT 74 H (7-52) U/L Troponin I High Sens 00285.6 H* (0-20) pg/ml Lipase 4 L (11-82) U/L Diagnostic Findings XR chest 1V portable HISTORY: 60 years-old Male Chest pain, nonspecific COMPARISON: None TECHNIQUE: AP view the chest FINDINGS: Cardiac silhouette is enlarged. No pneumothorax, large pleural effusion or lobar airspace consolidation. Mild coarsening of interstitium may be chronic. Bones appear grossly intact. Chronic appearing distal right clavicular deformity. IMPRESSION: Cardiomegaly without acute process. Medications Administered ER Medications Given: Aspirin 324mg PO Ondansetron 4mg IV Metoprolol 5g IV Nitroglycerin 0.4mg SL Normal saline 1000ml bolus ECG Rate (beats per minute): 103 Rhythm: sinus tachycardia Findings: + ST elevation (Anterolateral) Comparison ECG Date: no prior available Code Status & VTE Plan Code Status Full PG Care Time/CCT Total # of Minutes Spent Total Time Spent with Patient: Total time spent is greater than 50% in coordination of care (as documented) at patient's floor/unit and/or counseling patient: Coding Level of Care Code 69927 INT INP/OBS CARE 3/75MIN Diagnoses ST elevation myocardial infarction (STEMI) of anterior wall I21.09
[2025-07-08] MEDS: HEPARIN SOD (PORCINE) 1000 UNIT/ML IV ONE (17:10)
[2025-07-08] MEDS: PANTOprazole 40 MG/10 ML SYR IV SCH (17:12)
[2025-07-08 17:36] LABS: Cholesterol 202.0 mg/dl (0-200); HDL Cholesterol 37.0 mg/dl; Triglycerides 67.0 mg/dl (0-150)
[2025-07-08] MEDS: NITROGLYCERIN 2% OINTMENT 30GM TUBE EXT SCH (17:38)
[2025-07-08] MEDS: FORMOTEROL 20 MCG/2 ML VIAL NEB SCH (19:21)
[2025-07-08] MEDS: BUDESONIDE 0.5 MG/2 ML VIAL (PULMICORT) NEB SCH (19:21)
[2025-07-08] MEDS: METOPROLOL SUCC 25MG EXT REL TAB PO SCH (21:26)
[2025-07-08] MEDS: HEPARIN SOD 5,000 UNIT/0.5 ML VIAL SQ SCH (21:26)
[2025-07-09 05:44] LABS: Hematocrit (blood only) 44.8 % (42.0-52.0); Hemoglobin 14.9 g/dl (14.0-18.0); Immature Granulocytes # (auto) 0.08 K/uL (0.01-0.20); Immature Granulocytes % (auto) 0.5 %; Mean Corpuscular Hemoglobin 30.5 pg (25.0-34.0); Mean Corpuscular Volume 91.8 fL (80.0-100.0); Platelet Count 201 K/uL (130-400); RDW Standard Deviation 45.8 fL (36.4-46.3); Red Blood Count 4.88 M/uL (4.70-6.10); White Blood Count 15.28 K/ul (4.8-10.8)
[2025-07-09 05:55] LABS: Anion Gap 5.0 (3-11); Calcium 8.9 mg/dl (8.6-10.3); Carbon Dioxide 28.0 mmol/L (21-32); Chloride 104.0 mmol/L (98-107); Magnesium 2.1 mg/dl (1.7-2.4); Potassium 4.6 mmol/L (3.5-5.1); Sodium 137.0 mmol/L (136-145)
[2025-07-09 06:01] LABS: Blood Urea Nitrogen 13.0 mg/dl (6-23); Creatinine Clr Calc Pharmacy 85.4 ml/min; Glucose 110.0 mg/dl (70-99(Fasting))
--- NOTE | 2025-07-09 08:21 | Electrocardiogram Report ---
Test Reason : Blood Pressure : */* mmHG Vent. Rate : 103 BPM Atrial Rate : 103 BPM P-R Int : 158 ms QRS Dur : 74 ms QT Int : 326 ms P-R-T Axes : -19 164 -15 degrees QTcB Int : 427 ms Sinus tachycardia Low voltage QRS Possible Inferior infarct , age undetermined Anterolateral infarct , possibly acute ACUTE IN / STEMI Abnormal ECG No previous ECGs available Confirmed by Anuradha Hopkins (Cornelio) on 07/09/2025 8:21:38 AM Referred By: Tg Solorzano Confirmed By: Anuradha Hopkins
--- NOTE | 2025-07-09 08:22 | Electrocardiogram Report ---
Test Reason : Blood Pressure : */* mmHG Vent. Rate : 80 BPM Atrial Rate : 80 BPM P-R Int : 168 ms QRS Dur : 76 ms QT Int : 388 ms P-R-T Axes : -11 172 -18 degrees QTcB Int : 447 ms Normal sinus rhythm Low voltage QRS Inferior infarct (cited on or before 08-Jul-2025) Anterolateral infarct (cited on or before 08-Jul-2025) Abnormal ECG When compared with ECG of 08-Jul-2025 13:24, (unconfirmed) Serial changes of Anterior infarct Present Confirmed by Anuradha Hopkins (Cornelio) on 07/09/2025 8:21:59 AM Referred By: Tg Solorzano Confirmed By: Anuradha Hopkins
--- NOTE | 2025-07-09 08:22 | Electrocardiogram Report ---
Test Reason : Blood Pressure : */* mmHG Vent. Rate : 90 BPM Atrial Rate : 90 BPM P-R Int : 156 ms QRS Dur : 78 ms QT Int : 344 ms P-R-T Axes : 63 109 65 degrees QTcB Int : 420 ms Normal sinus rhythm Anterolateral infarct (cited on or before 08-Jul-2025) Abnormal ECG When compared with ECG of 08-Jul-2025 15:18, (unconfirmed) No significant change was found Confirmed by Anuradha Hopkins (Cornelio) on 07/09/2025 8:22:22 AM Referred By: Tg Solorzano Confirmed By: Anuradha Hopkins
--- NOTE | 2025-07-09 08:22 | Electrocardiogram Report ---
Test Reason : Blood Pressure : */* mmHG Vent. Rate : 88 BPM Atrial Rate : 88 BPM P-R Int : 158 ms QRS Dur : 82 ms QT Int : 370 ms P-R-T Axes : 58 103 69 degrees QTcB Int : 447 ms Normal sinus rhythm Low voltage QRS Anterolateral infarct (cited on or before 08-Jul-2025) Abnormal ECG When compared with ECG of 08-Jul-2025 13:53, (unconfirmed) QRS axis Shifted left Criteria for Inferior infarct are no longer Present Questionable change in initial forces of Anterior leads T wave inversion no longer evident in Inferior leads T wave amplitude has decreased in Lateral leads Confirmed by Anuradha Hopkins (Cornelio) on 07/09/2025 8:22:11 AM Referred By: Tg Solorzano Confirmed By: Anuradha Hopikns
--- NOTE | 2025-07-09 08:33 | Cardiology Progress Note ---
Date of Service July 09, 2025 Assessment & Plan (1) ST elevation myocardial infarction (STEMI) of anterior wall: (2) LV dysfunction: (3) Hyperlipidemia: (4) Smoker: (5) Xanthelasma of eyelid, bilateral: (6) Severe obstructive sleep apnea: Plan unfortunately this is a very late presentation of his anterior UT he will require dual antiplatelet therapy, statin treatment for heart failure prevention including beta-king in all likelihood Entresto as well as Jardiance diuretics to keep heart failure under control. Smoking cessation diet exercise. Will have to wait and see how he does on medical therapy. I am concerned that he has marginal BP and may limit medical therapy. Unfortunately because of his late presentation he may. Close cardiac follow-up as well as cardiac rehab. Are strongly recommended to have significant LV dysfunction even despite being able to get the LAD open. The remainder of his coronary tree only had mild plaque. Will recheck limited ECHO on Wednesday to see if any change in LVEF. Attempt to max meds. Will need life vest if EF remains < 35% Admission and Anticipated Discharge Date Admission Date: July 08, 2025 Subjective Overnight did ok no further CP on NTP BP marginal at best remains tachy; 1 dose of metoprolol rec'd last pm Review of Systems Review of Systems: All systems reviewed & are unremarkable except as noted in HPI & below Physical Exam Physical Exam: lying comfortable in bed denies SOB at rest Respiratory: diminished b/l Cardiovascular: summation gallop noted tachycardia no edema Results & Data Vital Signs (Past 12 Hours) Vital Signs Temp Pulse Resp BP Pulse Ox O2 Del Method O2 Flow Rate 07/09/25 07:36 110 H 22 82/54 L 94 Nasal Cannula 2 07/09/25 07:30 104 H 25 H 89/87 L 95 Nasal Cannula 2 07/09/25 07:03 108 H 23 105/76 92 Nasal Cannula 2 07/09/25 07:00 Nasal Cannula 2 07/09/25 05:30 104/66 07/09/25 05:27 104 H 28 H 94 07/09/25 05:18 100 H 27 H 94 07/09/25 05:00 102/70 07/09/25 04:54 100 H 27 H 94 07/09/25 04:36 99 H 26 H 96 07/09/25 04:30 92/60 L 07/09/25 04:21 99 H 25 H 95 08/11/25 04:00 99 H 31 H 96 07/09/25 04:00 37 C 86/58 L 07/09/25 03:33 97 H 28 H 94 07/09/25 03:30 106/69 07/09/25 03:18 95 H 27 H 91 07/09/25 03:05 97 H 26 H 92 3 07/09/25 03:00 100 H 27 H 92 07/09/25 02:30 96 H 29 H 94 07/09/25 02:30 94/67 L 07/09/25 02:18 98 H 28 H 91 07/09/25 02:00 91/64 L 07/09/25 01:51 99 H 24 92 07/09/25 01:32 91/59 L 07/09/25 01:30 92 H 24 95 07/09/25 01:03 102 H 32 H 94 07/09/25 01:00 106/70 07/09/25 00:57 103 H 24 95 07/09/25 00:35 100 H 26 H 96 07/09/25 00:23 102 H 26 H 95 07/09/25 00:00 119/89 07/09/25 00:00 37.1 C 119/89 07/08/25 23:56 88 23 99 07/08/25 23:56 93 H 07/08/25 23:39 90 18 95 07/08/25 23:30 112/75 07/08/25 23:20 90 24 95 07/08/25 23:05 93 H 26 H 95 07/08/25 23:00 37.1 C 115/76 07/08/25 22:42 90 23 97 07/08/25 22:33 95 H 24 97 07/08/25 22:30 104/73 07/08/25 22:27 91 H 25 H 94 07/08/25 22:15 97 H 25 H 95 3 07/08/25 22:03 91 H 27 H 94 07/08/25 22:00 100/60 07/08/25 21:51 102 H 25 H 94 07/08/25 21:03 108 H 29 H 90 07/08/25 21:00 105/70 07/08/25 20:54 104 H 29 H 89 L 07/08/25 20:39 111 H 15 91 Laboratory Results Abnormal lab results 07/08/25 07/08/25 07/08/25 Range/Units 13:29 13:31 15:36 WBC 17.36 H (4.8-10.8) K/ul Neut # (Auto) 14.02 H (1.40-6.50) K/uL [place] # (Auto) 1.28 H (0.11-0.59) K/uL BUN/Creatinine Ratio 8.3 L (10-20) Glucose 136 H (70-99(Fasting)) mg/dl POC Glucose 125 H (70-99) mg/dl POC Glucose (other) 133 H (70-99) mg/dl AST 375 H (13-39) U/L ALT 74 H (7-52) U/L Troponin I High Sens 64294.6 H* (0-20) pg/ml B-Natriuretic Peptide (0-100) pg/ml Cholesterol (0-200) mg/dl Cholesterol/HDL Ratio (0-5) Lipase 4 L (11-82) U/L 07/08/25 07/08/25 07/09/25 Range/Units 16:20 22:51 04:45 WBC 15.28 H (4.8-10.8) K/ul Neut # (Auto) 12.09 H (1.40-6.50) K/uL [place] # (Auto) 1.51 H (0.11-0.59) K/uL BUN/Creatinine Ratio (10-20) Glucose 110 H (70-99(Fasting)) mg/dl POC Glucose 118 H (70-99) mg/dl POC Glucose (other) (70-99) mg/dl AST (13-39) U/L ALT (7-52) U/L Troponin I High Sens > 742145.0 H* D 165882.8 H* D (0-20) pg/ml B-Natriuretic Peptide 353 H (0-100) pg/ml Cholesterol 202 H (0-200) mg/dl Cholesterol/HDL Ratio 5.5 H (0-5) Lipase (11-82) U/L 07/09/25 Range/Units 06:12 WBC (4.8-10.8) K/ul Neut # (Auto) (1.40-6.50) K/uL [place] # (Auto) (0.11-0.59) K/uL BUN/Creatinine Ratio (10-20) Glucose (70-99(Fasting)) mg/dl POC Glucose 114 H (70-99) mg/dl POC Glucose (other) (70-99) mg/dl AST (13-39) U/L ALT (7-52) U/L Troponin I High Sens (0-20) pg/ml B-Natriuretic Peptide (0-100) pg/ml Cholesterol (0-200) mg/dl Cholesterol/HDL Ratio (0-5) Lipase (11-82) U/L
[2025-07-09] MEDS ORDERED: VALSARTAN/SACUBITRIL 26/24MG TAB PO SCH (09:00)
--- NOTE | 2025-07-09 09:24 | Critical Care Progress Note ---
Date of Service July 09, 2025 Assessment & Plan (1) ST elevation myocardial infarction (STEMI) of anterior wall: (2) Nausea & vomiting: (3) Severe obstructive sleep apnea: (4) Smoker: (5) Xanthelasma of eyelid, bilateral: Plan Pt is a 60 yo male with PMH of ANIVAL, HLD and tobacco use who underwent cardiac cath s/p stents x 3 to LAD on 07/08/25. Pt is stable and ready to downgrade to medical floor with telemetry. -- STEMI S/p 3 stents to the LAD on 07/08/2025 Lipid profile completed elevated total cholesterol and LDL with low HDL Continue atorvastatin 80mg qpm Continue dual antiplatelet therapy Continue metoprolol succinate 25mg qpm Add CHRISTOPHER inhibitor as blood pressure tolerates Troponin down-trending from >[id number] --> [id number] Trend EKG Echo ordered by cardiology for 07/10/25 -- Acute hypoxic respiratory failure Likely secondary to pulmonary edema from STEMI O2 sat >90% on 2L via NC today. Continue formoterol 30mcg and budesonide 0.5mg via neb BID Wean from supplemental O2 per pt tolerance for 02 sat>90% Consider Stiolto at discharge -- ANIVAL Polysomnography 10/24/2024: AHI 67 Continue with BiPAP/CPAP nightly and as needed shortness of breath --Current smoker > [id number] smoking history, currently smoking a pack a day Reports quitting explained the patient in depth Recommend outpatient PFT as well as screening CAT scan of the chest Continue Nicotine patch --Prophylaxis VTE: heparin 5000u BID GI: Pantoprazole Lines: Peripheral Diet: Cardiac Admission and Anticipated Discharge Date Admission Date: July 08, 2025 Supervising Physician Co-Signing Physician Notes Dr. Montero was resident physician during care of patient. I separately evaluated patient for landrum portions of the history and the exam. I was present during the critical portion of medical decision making, and I discussed the case with the resident. I generally agree with the findings and plan. Stable downgrade out of ICU. Subjective Pt reports he is feeling well this morning. Pt notes that he is wearing nicotine patch and is aware it would be best for him to quit smoking. Denies chest pain, SOB, abdominal pain, N/V/D, new myalgias/arthralgias, or dys uria Review of Systems Review of Systems: As per HPI Physical Exam Physical Exam: Constitutional: No acute distress HEENT: EOMI, PERRLA, xanthelasma bilateral eyelids superior and inferior Respiratory system: Wheezing heard anteriorly, no crackles or rhonchi appreciated, no increased work of breathing, receiving 2L via NC CVS: S1-S2, no murmurs or gallops Abdomen: Soft, nontender, nondistended, positive bowel sounds x4, obese Extremities: +2 pulses bilaterally radialis/ dorsalis pedis, no cyanosis, no edema Neuro: Awake alert oriented x3 Psych: Normal mood and affect G/U: No Feldman Results & Data Results & Data Vital Signs (Past 12 Hours) Vital Signs Temp Pulse Pulse Resp BP Pulse Ox O2 Del Method 07/09/25 08:20 112 H 22 93 Nasal Cannula 07/09/25 07:36 110 H 22 82/54 L 94 Nasal Cannula 07/09/25 07:30 104 H 25 H 89/87 L 95 Nasal Cannula 07/09/25 07:03 108 H 23 105/76 92 Nasal Cannula 07/09/25 07:00 Nasal Cannula 07/09/25 05:30 104/66 07/09/25 05:27 104 H 28 H 94 07/09/25 05:18 100 H 27 H 94 07/09/25 05:00 102/70 07/09/25 04:54 100 H 27 H 94 07/09/25 04:36 99 H 26 H 96 07/09/25 04:30 92/60 L 07/09/25 04:21 99 H 25 H 95 07/09/25 04:00 99 H 31 H 96 07/09/25 04:00 37 C 86/58 L 07/09/25 03:33 97 H 28 H 94 07/09/25 03:30 106/69 07/09/25 03:18 95 H 27 H 91 07/09/25 03:05 97 H 26 H 92 07/09/25 03:00 100 H 27 H 92 07/09/25 02:30 96 H 29 H 94 07/09/25 02:30 94/67 L 07/09/25 02:18 98 H 28 H 91 07/09/25 02:00 91/64 L 07/09/25 01:51 99 H 24 92 07/09/25 01:32 91/59 L 07/09/25 01:30 92 H 24 95 08/11/25 01:03 102 H 32 H 94 07/09/25 01:00 106/70 07/09/25 00:57 103 H 24 95 07/09/25 00:35 100 H 26 H 96 07/09/25 00:23 102 H 26 H 95 07/09/25 00:00 119/89 07/09/25 00:00 37.1 C 119/89 07/08/25 23:56 88 23 99 07/08/25 23:56 93 H 07/08/25 23:39 90 18 95 07/08/25 23:30 112/75 07/08/25 23:20 90 24 95 07/08/25 23:05 93 H 26 H 95 07/08/25 23:00 37.1 C 115/76 07/08/25 22:42 90 23 97 07/08/25 22:33 95 H 24 97 07/08/25 22:30 104/73 07/08/25 22:27 91 H 25 H 94 07/08/25 22:15 97 H 25 H 95 07/08/25 22:03 91 H 27 H 94 07/08/25 22:00 100/60 07/08/25 21:51 102 H 25 H 94 O2 Flow Rate 07/09/25 08:20 3 07/09/25 07:36 2 07/09/25 07:30 2 07/09/25 07:03 2 07/09/25 07:00 2 07/09/25 05:30 07/09/25 05:27 07/09/25 05:18 07/09/25 05:00 07/09/25 04:54 07/09/25 04:36 07/09/25 04:30 07/09/25 04:21 07/09/25 04:00 07/09/25 04:00 07/09/25 03:33 07/09/25 03:30 07/09/25 03:18 07/09/25 03:05 3 07/09/25 03:00 07/09/25 02:30 07/09/25 02:30 07/09/25 02:18 07/09/25 02:00 07/09/25 01:51 07/09/25 01:32 07/09/25 01:30 07/09/25 01:03 07/09/25 01:00 07/09/25 00:57 07/09/25 00:35 07/09/25 00:23 07/09/25 00:00 07/09/25 00:00 07/08/25 23:56 07/08/25 23:56 07/08/25 23:39 07/08/25 23:30 07/08/25 23:20 07/08/25 23:05 07/08/25 23:00 07/08/25 22:42 07/08/25 22:33 07/08/25 22:30 07/08/25 22:27 07/08/25 22:15 3 07/08/25 22:03 07/08/25 22:00 07/08/25 21:51 Resident Activity Tracking Resident Involvement: Resident Care Provided Care Provided: Adult Hospital Medicine
[2025-07-09] MEDS: NICOTINE 14 MG/24 HR PATCH TD SCH (09:31)
[2025-07-09] MEDS: REMOVE NICODERM PATCH SCH (09:32)
--- NOTE | 2025-07-09 09:59 | Billing Data ---
Date of Service July 09, 2025 Coding Level of Care Code 76753 SUB INP/OBS CARE
[2025-07-09] MEDS: ASPIRIN 81 MG ECTAB PO SCH (10:29)
[2025-07-09] MEDS: CLOPIDOGREL BISULFATE 75 MG TAB PO SCH (10:29)
[2025-07-09] MEDS: VALSARTAN/SACUBITRIL 26/24MG TAB PO SCH ×3 (10:42→14:34)
--- NOTE | 2025-07-09 12:11 | Electrocardiogram Report ---
Test Reason : Blood Pressure : */* mmHG Vent. Rate : 105 BPM Atrial Rate : 105 BPM P-R Int : 150 ms QRS Dur : 78 ms QT Int : 308 ms P-R-T Axes : 39 205 41 degrees QTcB Int : 407 ms Sinus tachycardia Low voltage QRS Septal infarct (cited on or before 08-Jul-2025) Lateral infarct (cited on or before 08-Jul-2025) Inferior infarct , age undetermined Abnormal ECG When compared with ECG of 08-Jul-2025 16:25, Questionable change in QRS axis Inferior infarct is now Present ST no longer depressed in Inferior leads Confirmed by Yuri Tian ([id number]) on 07/09/2025 12:10:43 PM Referred By: Tg Solorzano Confirmed By: Yuri Tian
--- NOTE | 2025-07-09 14:16 | Hospitalist Progress Note ---
Date of Service July 09, 2025 Assessment & Plan (1) ST elevation myocardial infarction (STEMI) of anterior wall: (2) Ischemic cardiomyopathy: (3) Severe obstructive sleep apnea: (4) Smoker: Plan 60 year old male presents to the ER with chest pain since yesterday and ST elevation in anterolateral leads on EKG #STEMI / ischemic cardiomyopathy s/p 3 GERRI to LAD on 07/08 Asa and clopidogrel given pre-cardiac cath, continue daily Started on metoprolol succinate 25mg PO daily, unfortunately BP limiting up titration of this Start Entresto as long as sBP > 100, held temporarily this morning as one off BP MAP < 65, given at midday Consider SGLT-2 inhibitor and MRA prior to discharge if BP can take quadruple therapy Stop nitroglycerin paste to allow BP for GDMT, no current chest pain to suggest ongoing need for this Started on atorvastatin 80mg PO QPM, continue Consider cardiac rehabilitation on discharge Appreciate cardiology recommendations - discussed care with Dr Hopkins Started on formoterol and budesonide by ICU yesterday but no documented history of COPD and no currently wheezy, given his tachycardia will stop these interventions currently and monitor his lung exam. #Tobacco use disorder Start nicotine patch 14mg TD VTE Prophylaxis - heparin 5000 units Disposition - admit to ICU Admission and Anticipated Discharge Date Admission Date: July 08, 2025 Subjective No chest pain, no shortness of breath. No dizziness on standing or walking around the room. Physical Exam Constitutional: WD/WN, vitals as above Respiratory: normal respiratory effort, lungs clear to auscultation Cardiovascular: Rate/Rhythm: regular rhythm and + tachycardic Heart Sounds: no murmur Gastrointestinal (Abdomen): Percussion/Palpation: abdomen soft; abdomen nontender Results & Data Results & Data Vital Signs (Past 12 Hours) Vital Signs Temp Pulse Pulse Resp BP BP Pulse Ox 07/09/25 12:33 37.4 C 100 H 18 106/73 90 07/09/25 12:05 100 H 27 H 96 07/09/25 11:03 104 H 27 H 96/67 L 93 07/09/25 10:00 101 H 32 H 100/78 92 07/09/25 09:27 107 H 30 H 100/71 91 07/09/25 09:03 106 H 29 H 109/74 86 L 07/09/25 08:27 113 H 19 107/68 97 07/09/25 08:20 112 H 22 93 07/09/25 07:36 110 H 22 82/54 L 94 07/09/25 07:30 104 H 25 H 89/87 L 95 07/09/25 07:03 108 H 23 105/76 92 07/09/25 07:00 07/09/25 05:30 104/66 07/09/25 05:27 104 H 28 H 94 07/09/25 05:18 100 H 27 H 94 07/09/25 05:00 102/70 07/09/25 04:54 100 H 27 H 94 07/09/25 04:36 99 H 26 H 96 07/09/25 04:30 92/60 L 07/09/25 04:21 99 H 25 H 95 07/09/25 04:00 99 H 31 H 96 07/09/25 04:00 37 C 86/58 L 07/09/25 03:33 97 H 28 H 94 07/09/25 03:30 106/69 07/09/25 03:18 95 H 27 H 91 07/09/25 03:05 97 H 26 H 92 07/09/25 03:00 100 H 27 H 92 07/09/25 02:30 96 H 29 H 94 07/09/25 02:30 94/67 L 07/09/25 02:18 98 H 28 H 91 O2 Del Method O2 Flow Rate 07/09/25 12:33 Room Air 07/09/25 12:05 3 07/09/25 11:03 Nasal Cannula 2 07/09/25 10:00 Nasal Cannula 2 07/09/25 09:27 Nasal Cannula 2 07/09/25 09:03 Nasal Cannula 2 07/09/25 08:27 Nasal Cannula 2 07/09/25 08:20 Nasal Cannula 3 07/09/25 07:36 Nasal Cannula 2 07/09/25 07:30 Nasal Cannula 2 07/09/25 07:03 Nasal Cannula 2 07/09/25 07:00 Nasal Cannula 2 07/09/25 05:30 07/09/25 05:27 07/09/25 05:18 07/09/25 05:00 07/09/25 04:54 07/09/25 04:36 07/09/25 04:30 07/09/25 04:21 07/09/25 04:00 07/09/25 04:00 07/09/25 03:33 07/09/25 03:30 07/09/25 03:18 07/09/25 03:05 3 07/09/25 03:00 07/09/25 02:30 07/09/25 02:30 07/09/25 02:18 PG Care Time/CCT Total # of Minutes Spent Total Time Spent with Patient: Total time spent is greater than 50% in coordination of care (as documented) at patient's floor/unit and/or counseling patient: Coding Level of Care Code 88182 SUB INP/OBS CARE 3/50MIN Diagnoses ST elevation myocardial infarction (STEMI) of anterior wall I21.09 Ischemic cardiomyopathy I25.5 Severe obstructive sleep apnea G47.33 Smoker F17.200
[2025-07-09] MEDS: ATORVASTATIN 40 MG TAB PO SCH (21:44)
[2025-07-09] MEDS: HEPARIN SOD 5,000 UNIT/0.5 ML VIAL SQ SCH (21:44)
[2025-07-10 06:50] LABS: Hematocrit (blood only) 44.0 % (42.0-52.0); Hemoglobin 14.7 g/dl (14.0-18.0); Immature Granulocytes # (auto) 0.06 K/uL (0.01-0.20); Immature Granulocytes % (auto) 0.4 %; Mean Corpuscular Hemoglobin 31.2 pg (25.0-34.0); Mean Corpuscular Volume 93.4 fL (80.0-100.0); Platelet Count 167 K/uL (130-400); RDW Standard Deviation 45.2 fL (36.4-46.3); Red Blood Count 4.71 M/uL (4.70-6.10); White Blood Count 14.64 K/ul (4.8-10.8)
[2025-07-10 07:08] LABS: Hemoglobin A1C 6.1 % (4.5-5.6)
[2025-07-10 07:14] LABS: Alanine Aminotransferase 60.0 U/L (7-52); Albumin Globulin Ratio 1.4 (0.9-2); Alkaline Phosphatase 66.0 U/L (34-104); Anion Gap 5.0 (3-11); Bilirubin,Total 0.9 mg/dl (0.2-1.0); Blood Urea Nitrogen 18.0 mg/dl (6-23); Calcium 9.0 mg/dl (8.6-10.3); Carbon Dioxide 33.0 mmol/L (21-32); Chloride 100.0 mmol/L (98-107); Creatinine Clr Calc Pharmacy 79.6 ml/min; Globulin 2.8 gm/dl (2.5-4.0); Glucose 106.0 mg/dl (70-99(Fasting)); Potassium 4.2 mmol/L (3.5-5.1); Sodium 138.0 mmol/L (136-145); Total Protein 6.7 gm/dl (6.0-8.3)
--- NOTE | 2025-07-10 07:36 | XRay Report ---
EXAM: XR chest 1V portable CLINICAL HISTORY: Hypoxia. TECHNIQUE: An X-ray image of the chest is obtained in PA projection. COMPARISON: No prior studies are available for comparison. FINDINGS: Pulmonary Parenchyma: Prominent interstitial bronchovascular markings and prominent bilateral hilar shadows are noted. The left costophrenic angle is obscured by hazy opacities in the left lower lung zone. The right lung is clear. No pulmonary nodules are identified. No evidence of right-side pleural effusion. Heart and Mediastinum: The aortic arch is prominent. Heart size and shape are normal. No mediastinal widening or masses. No hilar or mediastinal lymphadenopathy. Bony Thorax: Bony thorax appears intact without fractures or deformities. Soft Tissues: Soft tissues overlying the chest wall are unremarkable. IMPRESSION: 1. Prominent bilateral hilar shadows and interstitial bronchovascular marking could suggest congestion; clinical correlation advised. 2. Haziness in the left lower lung zone with obscuring of the left costophrenic angle, suggestive of a process such as pleural effusion or atelectasis; clinical correlation required. Electronically signed by Diaz Rivera 07-10-2025 07:36 AM
[2025-07-10] MEDS ORDERED: EMPAGLIFLOZIN 10 MG TAB PO SCH (09:00)
--- NOTE | 2025-07-10 09:10 | Hospitalist Progress Note ---
Date of Service July 10, 2025 Assessment & Plan (1) ST elevation myocardial infarction (STEMI) of anterior wall: (2) Ischemic cardiomyopathy: (3) Severe obstructive sleep apnea: (4) Smoker: (5) Acute heart failure with reduced ejection fraction (HFrEF): Plan 60 year old male presents to the ER with chest pain since yesterday and ST elevation in anterolateral leads on EKG #STEMI / ischemic cardiomyopathy / Acute heart failure with reduced ejection fraction s/p 3 GERRI to LAD on 07/08 Asa and clopidogrel given pre-cardiac cath, continue daily Started on atorvastatin 80mg PO QPM, continue BP limited up titration of heart failure medications: Started on metoprolol succinate 25mg PO daily (did not get this last night therefore will re time this for this morning) Started on Entresto, continue as long as sBP > 90 Start Jardiance 10mg PO daily, hopefully this will help with diuresis as he appears to be slowly getting more hypervolemic - BNP increase, crackles on exam and CXR with congestion Consider low dose MRA prior to discharge to complete quadruple therapy Needs cardiac rehabilitation on discharge If EF remains low will need life vest - having repeat limited TTE today, if remains low will start arrangements for this Appreciate cardiology recommendations - discussed care with Dr Hopkins No wheezing has come back off formoterol/budesonide therefore will continue off these - recommend follow up PFTs as outpatient #Tobacco use disorder Start nicotine patch 14mg TD #Obstructive sleep apnea Continue BiPAP/CPAP HS and while napping VTE Prophylaxis - heparin 5000 units, can discontinue once more ambulatory Disposition - admit to ICU Admission and Anticipated Discharge Date Admission Date: July 08, 2025 Subjective Patient reports doing well. No chest pain, shortness of breath or leg swelling. No dizziness on standing. Physical Exam Constitutional: WD/WN, vitals as above ENMT: external ear and nose normal, oropharynx normal Respiratory: normal respiratory effort; no respiratory distress Auscultation: + crackles (bibasal mild) Cardiovascular: Rate/Rhythm: regular rhythm and + tachycardic Heart Sounds: no murmur Extremities: no pedal edema Gastrointestinal (Abdomen): normal bowel sounds, soft, nontender, no hepatosplenomegaly Percussion/Palpation: abdomen soft; abdomen nontender Results & Data Results & Data Vital Signs (Past 12 Hours) Vital Signs Temp Pulse Pulse Resp BP BP Pulse Ox 07/10/25 09:03 07/10/25 08:11 36.5 C 100 H 18 114/76 96 07/10/25 08:00 85 07/10/25 02:56 36.8 C 100 H 18 103/65 94 07/10/25 02:56 100 H 20 94 07/09/25 23:11 36.8 C 93 H 16 92/66 L 97 07/09/25 22:13 97 H 16 97 07/09/25 21:38 103 H 98/63 L 07/09/25 21:36 101 H 90/57 L 07/09/25 21:29 91 H O2 Del Method O2 Flow Rate 07/10/25 09:03 Room Air 07/10/25 08:11 Room Air 07/10/25 08:00 07/10/25 02:56 Nasal Cannula 3 07/10/25 02:56 3 07/09/25 23:11 CPAP 07/09/25 22:13 3 07/09/25 21:38 07/09/25 21:36 07/09/25 21:29 PG Care Time/CCT Total # of Minutes Spent Total Time Spent with Patient: Total time spent is greater than 50% in coordination of care (as documented) at patient's floor/unit and/or counseling patient: Coding Level of Care Code 65439 SUB INP/OBS CARE 3/50MIN Diagnoses ST elevation myocardial infarction (STEMI) of anterior wall I21.09 Ischemic cardiomyopathy I25.5 Severe obstructive sleep apnea G47.33 Smoker F17.200 Acute heart failure with reduced ejection fraction (HFrEF) I50.21
--- NOTE | 2025-07-10 09:43 | Cardiology Progress Note ---
Date of Service July 10, 2025 Assessment & Plan (1) ST elevation myocardial infarction (STEMI) of anterior wall: (2) LV dysfunction: (3) Hyperlipidemia: (4) Smoker: (5) Xanthelasma of eyelid, bilateral: (6) Severe obstructive sleep apnea: Plan Mr. Garcia has not had further chest pain since his stenting. He continues to run low blood pressures and be mildly tachycardic. Echo is pending to reassess his LV function. I discussed with him that it usually takes 2-3 months after a heart attack to see how much LV function will be recovered and that adherence to his medication regimen is paramount. We can accept mild hypotension ie systolics in the 90s if he is not lightheaded. He started Entresto this morning and should continue on metoprolol. If his blood pressures improve we can add Jardiance and spironolactone. Alternatively we could consider midodrine to support maximal GDMT. He will need a Life Vest at discharge if his EF remains below 35%. He will require DAPT over the next year which should not be interrupted without discussion with cardiology. He should continue high dose statin therapy. We discussed smoking cessation. We also discussed maintaining a Mediterranean low sodium diet of less than 2,000 mg of sodium per day. He has crackles in his bases and was encouraged to use incentive spirometry Case was discussed with Dr. Hopkins Admission and Anticipated Discharge Date Admission Date: July 08, 2025 Subjective Mr. Garcia is not having any chest pain today. He has been on bedrest given his low blood pressures. He is not sob. He is still somewhat tachycardic but his metoprolol was held last evening for hypotension Review of Systems Review of Systems: All systems reviewed & are unremarkable except as noted in HPI & below Physical Exam Constitutional: WD/WN, vitals as above Respiratory: normal respiratory effort and + respiratory distress Auscultation: + crackles (bases ) Cardiovascular: RRR, no murmur, no edema Skin: no rashes, warm and dry Neurologic: moves all extremities and awake Psychiatric: A+Ox3, euthymic affect Results & Data Vital Signs (Past 12 Hours) Vital Signs Temp Pulse Pulse Resp BP BP Pulse Ox 07/10/25 09:03 07/10/25 08:11 36.5 C 100 H 18 114/76 96 07/10/25 08:00 85 07/10/25 02:56 36.8 C 100 H 18 103/65 94 07/10/25 02:56 100 H 20 94 07/09/25 23:11 36.8 C 93 H 16 92/66 L 97 07/09/25 22:13 97 H 16 97 O2 Del Method O2 Flow Rate 07/10/25 09:03 Room Air 07/10/25 08:11 Room Air 07/10/25 08:00 07/10/25 02:56 Nasal Cannula 3 07/10/25 02:56 3 07/09/25 23:11 CPAP 07/09/25 22:13 3
[2025-07-10] MEDS: EMPAGLIFLOZIN 10 MG TAB PO ONE (10:19)
[2025-07-10] MEDS: METOPROLOL SUCC 25MG EXT REL TAB PO SCH (10:19)
--- NOTE | 2025-07-10 13:13 | Electrocardiogram Report ---
Test Reason : Blood Pressure : */* mmHG Vent. Rate : 107 BPM Atrial Rate : 107 BPM P-R Int : 144 ms QRS Dur : 82 ms QT Int : 332 ms P-R-T Axes : 43 122 58 degrees QTcB Int : 443 ms Sinus tachycardia Right axis deviation Low voltage QRS Cannot rule out Anteroseptal infarct (cited on or before 08-Jul-2025) Abnormal ECG When compared with ECG of 09-Jul-2025 06:19, Questionable change in QRS axis Criteria for Inferior infarct are no longer Present Confirmed by Yuri Tian ([id number]) on 07/10/2025 1:12:37 PM Referred By: Tg Solorzano Confirmed By: Yuri Tian
[2025-07-11 06:53] LABS: Anion Gap 4.0 (3-11); Blood Urea Nitrogen 18.0 mg/dl (6-23); Calcium 8.6 mg/dl (8.6-10.3); Carbon Dioxide 29.0 mmol/L (21-32); Chloride 103.0 mmol/L (98-107); Creatinine Clr Calc Pharmacy 85.4 ml/min; Glucose 109.0 mg/dl (70-99(Fasting)); Magnesium 2.2 mg/dl (1.7-2.4); Potassium 4.0 mmol/L (3.5-5.1); Sodium 136.0 mmol/L (136-145)
--- NOTE | 2025-07-11 08:05 | Hospitalist Progress Note ---
Date of Service July 11, 2025 Assessment & Plan (1) ST elevation myocardial infarction (STEMI) of anterior wall: (2) Ischemic cardiomyopathy: (3) Severe obstructive sleep apnea: (4) Smoker: (5) Acute heart failure with reduced ejection fraction (HFrEF): Plan 60 year old male presents to the ER with chest pain and ST elevation in anterolateral leads on EKG, patient had stents placed and found to have ischemic cardiomyopathy with EF of 15% #STEMI / ischemic cardiomyopathy / Acute heart failure with reduced ejection fraction s/p 3 GERRI to LAD on 07/08 Asa and clopidogrel given pre-cardiac cath, continue daily Started on atorvastatin 80mg PO QPM, continue BP limited up titration of heart failure medications: Started on metoprolol succinate 25mg PO daily Started on Entresto, continue as long as sBP > 90 Start Jardiance 10mg PO daily, hopefully this will help with diuresis as he appears to be slowly getting more hypervolemic - BNP increase, crackles on exam and CXR with congestionadditional diuretic given on 07/11/2025 likely go home on diuretic dose still be determined whether be a loop or mineralocorticoid agonist Given bedside education regarding heart failure reduced ejection fraction education Needs cardiac rehabilitation on discharge repeat limited TTE 07/10/25 remains with low EF. consider life vest at dc, LifeVest measurement to be done on 813 at 4 PM Appreciate cardiology recommendations - discussed care with Dr Hopkins No wheezing has come back off formoterol/budesonide therefore will continue off these - recommend follow up PFTs as outpatient #Tobacco use disorder Start nicotine patch 14mg TD #Obstructive sleep apnea Continue BiPAP/CPAP HS and while napping VTE Prophylaxis - heparin 5000 units, can discontinue once more ambulatory Disposition - admit to ICU Admission and Anticipated Discharge Date Admission Date: July 08, 2025 Subjective pt is doing well, feels some exertional dyspnea, no further chest pain updated at bedside Physical Exam Physical Exam: cardiac exam is regular, cath access site is C/d/i lungs are clear Results & Data Results & Data Vital Signs (Past 12 Hours) Vital Signs Temp Pulse Pulse Resp BP Pulse Ox O2 Del Method 07/11/25 07:48 97.9 F 90 18 110/75 93 Room Air 07/11/25 03:41 90 20 95/67 L 96 BiPAP 07/11/25 03:25 25 H 07/10/25 23:13 98.2 F 92 H 18 100/70 95 CPAP 07/10/25 22:22 97 H 28 H 94 07/10/25 22:10 96 H 07/10/25 20:34 Room Air 07/10/25 20:28 98 H 110/74 FiO2 07/11/25 07:48 07/11/25 03:41 07/11/25 03:25 21 07/10/25 23:13 07/10/25 22:22 21 07/10/25 22:10 07/10/25 20:34 07/10/25 20:28 Laboratory Results reviewed chemistry bnp and glucose did bedside teaching for chf and glucose intolerance PG Care Time/CCT Total # of Minutes Spent Total Time Spent with Patient: Total time spent is greater than 50% in coordination of care (as documented) at patient's floor/unit and/or counseling patient: Coding Level of Care Code 34035 SUB INP/OBS CARE 3/50MIN Diagnoses ST elevation myocardial infarction (STEMI) of anterior wall I21.09 Ischemic cardiomyopathy I25.5 Severe obstructive sleep apnea G47.33 Smoker F17.200 Acute heart failure with reduced ejection fraction (HFrEF) I50.21
[2025-07-11] MEDS: EMPAGLIFLOZIN 10 MG TAB PO SCH (08:09)
[2025-07-11] MEDS: FUROSEMIDE INJ 20 MG/2 ML VIAL IV ONE (09:01)
[2025-07-11] MEDS: FUROSEMIDE INJ 20 MG/2 ML VIAL IV STA (09:08)
--- NOTE | 2025-07-11 09:51 | Cardiology Progress Note ---
Date of Service July 11, 2025 Assessment & Plan (1) ST elevation myocardial infarction (STEMI) of anterior wall: (2) LV dysfunction: (3) Hyperlipidemia: (4) Smoker: (5) Xanthelasma of eyelid, bilateral: (6) Severe obstructive sleep apnea: Plan Mr. Garcia has not had further chest pain since his stenting. He continues to run low blood pressures and be mildly tachycardic. ECHO shows no significant improvement in the LVEF. Will cont current meds. Mild CHF on exam today-will give IV Lasix. I discussed with him that it usually takes 2-3 months after a heart attack to see how much LV function will be recovered and that adherence to his medication regimen is paramount. We can accept mild hypotension ie systolics in the 90s if he is not lightheaded. He started Entresto this morning and should continue on metoprolol. If his blood pressures improve we can add Jardiance and spironolactone. Alternatively we could consider midodrine to support maximal GDMT. He will need a Life Vest at discharge if his EF remains below 35%. He will require DAPT over the next year which should not be interrupted without discussion with cardiology. He should continue high dose statin therapy. We discussed smoking cessation. We also discussed maintaining a Mediterranean low sodium diet of less than 2,000 mg of sodium per day. Cardiac rehab post DC Anticipate DC in next 24 hours. Admission and Anticipated Discharge Date Admission Date: July 08, 2025 Subjective Patient reports doing well. Notes slight increase in SOB, breathlessness on occasion BNP increased to 500 range BP seems to be tolerating meds Review of Systems Review of Systems: All systems reviewed & are unremarkable except as noted in HPI & below Physical Exam Physical Exam: lying at 20 degrees in bed-some conversational dyspnea Neck: +JVD Respiratory: rales at bases b/l Cardiovascular: summation gallop Results & Data Vital Signs (Past 12 Hours) Vital Signs Temp Pulse Pulse Resp BP Pulse Ox O2 Del Method 07/11/25 08:00 Room Air 07/11/25 08:00 89 07/11/25 07:48 36.6 C 90 18 110/75 93 Room Air 07/11/25 03:41 90 20 95/67 L 96 BiPAP 07/11/25 03:25 25 H 07/10/25 23:13 36.8 C 92 H 18 100/70 95 CPAP 07/10/25 22:22 97 H 28 H 94 07/10/25 22:10 96 H FiO2 07/11/25 08:00 07/11/25 08:00 07/11/25 07:48 07/11/25 03:41 07/11/25 03:25 21 07/10/25 23:13 07/10/25 22:22 21 07/10/25 22:10 Laboratory Results Abnormal lab results 07/11/25 Range/Units 05:48 Glucose 109 H (70-99(Fasting)) mg/dl B-Natriuretic Peptide 564 H (0-100) pg/ml
--- NOTE | 2025-07-12 09:30 | Cardiology Progress Note ---
Date of Service July 12, 2025 Assessment & Plan (1) Ischemic cardiomyopathy: (2) ST elevation myocardial infarction (STEMI) of anterior wall: (3) Hyperlipidemia: (4) Smoker: (5) Severe obstructive sleep apnea: Plan Doing well on meds. DC on current meds DAPT, Entresto starting dose, Metoprolol XL 25mg, atorvastatin 80mg, nicotine patch, po lasix 20mg prn weight gain or SOB I will follow up in 2 weeks-will do labs with his appt needs to cont CPAP as well establish with PCP Cardiac Rehab post DC Reviewed with Dr. Breaux Admission and Anticipated Discharge Date Admission Date: July 08, 2025 Subjective Patient reports doing well. Diuresed well with IV lasix yesterday BP seems to be tolerating meds Anticipate DC today with life vest will consult cardiac rehab post DC Advised to stay out of work until I seen in follow up in 2 weeks in office. He should have labs in 2 weeks-can have those in my office (BNP, BMP, CBC) He also needs to get established with PCP Review of Systems Review of Systems: All systems reviewed & are unremarkable except as noted in HPI & below Physical Exam Physical Exam: improved Respiratory: normal respiratory effort, lungs clear to auscultation Cardiovascular: Rate/Rhythm: regular rate and regular rhythm Results & Data Vital Signs (Past 12 Hours) Vital Signs Temp Pulse Pulse Resp BP Pulse Ox O2 Del Method 07/12/25 07:38 36.7 C 94 H 18 122/80 97 Room Air 07/12/25 03:24 36.6 C 77 19 98/65 L 93 BiPAP 07/12/25 02:35 80 27 H 94 07/11/25 23:10 36.7 C 85 20 108/70 95 BiPAP 07/11/25 22:33 91 H FiO2 07/12/25 07:38 07/12/25 03:24 07/12/25 02:35 21 07/11/25 23:10 07/11/25 22:33 Laboratory Results no new labs to report Medications Administered Current Inpatient Medications Aspirin (Aspirin 81 Mg Ectab) 81 mg PO QAM [facility] Stop: 08/08/25 08:59 Last Admin: 07/12/25 07:46 Dose: 81 mg Atorvastatin Calcium (Atorvastatin 40 Mg Tab) 80 mg PO PM [facility] Stop: 08/08/25 20:59 Last Admin: 07/11/25 20:27 Dose: 80 mg Clopidogrel Bisulfate (Clopidogrel Bisulfate 75 Mg Tab) 75 mg PO QAM [facility] Stop: 08/08/25 08:59 Last Admin: 07/12/25 07:46 Dose: 75 mg Empagliflozin (Empagliflozin 10 Mg Tab) 10 mg PO DAILY [facility] Stop: 08/10/25 08:59 Last Admin: 07/12/25 07:47 Dose: 10 mg Heparin Sodium (Porcine) (Heparin Sod 5,000 Unit/0.5 Ml Vial) 5,000 units SQ Q12 [facility] Stop: 08/08/25 20:59 Last Admin: 07/12/25 07:52 Dose: 5,000 units Metoprolol Succinate (Metoprolol Succ 25mg Ext Rel Tab) 25 mg PO [facility] Stop: 08/09/25 09:29 Last Admin: 07/12/25 07:46 Dose: 25 mg Miscellaneous (Remove Nicoderm Patch) 1 each N/A DAILY@0859 [facility] Stop: 08/08/25 08:58 Last Admin: 07/12/25 07:46 Dose: 1 each Nicotine (Nicotine 14 Mg/24 Hr Patch) 1 patch TD [facility] Stop: 08/08/25 08:59 Last Admin: 07/12/25 07:46 Dose: 1 patch Ondansetron HCl (Ondansetron Inj 2 Mg/Ml 2 Ml Vial) 4 mg IV Q4H PRN PRN Reason: Nausea Stop: 08/07/25 15:55 Last Admin: 07/08/25 16:02 Dose: 4 mg Sacubitril/Valsartan (Valsartan/Sacubitril 26/24mg Tab) 1 tab PO BID [facility] Stop: 08/08/25 14:14 Last Admin: 07/12/25 07:46 Dose: 1 tab
[2025-07-12 10:42] LABS: Anion Gap 6.0 (3-11); Blood Urea Nitrogen 19.0 mg/dl (6-23); Calcium 9.0 mg/dl (8.6-10.3); Carbon Dioxide 28.0 mmol/L (21-32); Chloride 103.0 mmol/L (98-107); Creatinine Clr Calc Pharmacy 85.2 ml/min; Glucose 110.0 mg/dl (70-99(Fasting)); Potassium 4.2 mmol/L (3.5-5.1); Sodium 137.0 mmol/L (136-145)
[2025-07-12 11:07] VITALS: PULSE 92; RESP 19; TEMP 97.9; O2SAT 93
[2025-07-12 13:08] VITALS: BP 94/66
--- NOTE | 2025-07-12 19:05 | Discharge Summary ---
Discharge Summary Date of Service July 12, 2025 Principal Dx & Hospital Course #1 = Principal Diagnosis (1) ST elevation myocardial infarction (STEMI) of anterior wall: (2) Ischemic cardiomyopathy: (3) Severe obstructive sleep apnea: (4) Smoker: (5) Acute heart failure with reduced ejection fraction (HFrEF): Plan 60 year old male presents to the ER with chest pain and ST elevation in anterolateral leads on EKG, patient had stents placed and found to have ischemic cardiomyopathy with EF of 15% #STEMI / ischemic cardiomyopathy / Acute heart failure with reduced ejection fraction s/p 3 GERRI to LAD on 07/08 Asa and clopidogrel given pre-cardiac cath, continue at discharge Started on atorvastatin 80mg PO QPM, continue metoprolol Entresto and Jardiance Patient given prescription for as needed Lasix for weight gain of 3 pounds a day or 5 pounds a week not given mineral corticoid receptor agonist at this time Given bedside education regarding heart failure reduced ejection fraction education Needs cardiac rehabilitation on discharge repeat limited TTE 07/10/25 remains with low EF. consider life vest at dc, LifeVest measurement to be done on 813 at 4 PM Appreciate cardiology recommendations - discussed care with Dr Hopkins chest vest placement prior to going home patient is off work until follows up with Dr. Nath #Tobacco use disorder Cessation counseling given encouragement for use of outpatient patch #Obstructive sleep apnea Continue BiPAP/CPAP HS and while napping Notes For Next Care Provider Patient may benefit from daily diuretic use for spironolactone institution Please referral to cardiac rehabilitation Continue support for nicotine cessation Consider outpatient education for dietary modification Admission HPI Per Admitting Provider Tima Garcia is a 60 year old male who presents to the ER with constant chest pain since yesterday. Associated nausea, vomiting and diaphoresis. He denies any history of heart attack or stroke. Pain has been constant. Nothing making it better or worse. Severity 09/07, currently /10 post cardiac cath. He smokes a pack a day but denies any diabetes, hypertension or high cholesterol. Patient seen post cardiac cath. 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 You should have close follow up with cardiology and become enrolled in cardiac rehab weigh youself to guage fluid retention and guide your outpatient doctors on medication adjustment eval your diet, opt for healthy whole foods and limit sugar intake stop smoking, this will be the second most important thing you do other than taking your mediaiton and keeping in touch with your doctors Addtl Supervisor Cd Area Provider Instructions: Call 911 and go to the Emergency Room if: * You have tightness or pain in your chest that does not go away with rest or Nitroglycerin * You are very short of breath even with rest Call your doctor if any of the following symptoms or problems start or get worse: * Shortness of breath or difficulty breathing * Wake up at night short of breath * Chest pain * Cough * Swelling of your hands, fee, or legs * More fatigued or tired with your normal activity * Palpitations - sudden fast heart beats WEIGHT * Weigh yourself every morning after using the bathroom. * Use the same scale. * Wear the same amount of clothing. * Write your weight down on your chart. * Call your doctor if you gain more than 2-3 pounds in 1-2 days. MEDICATIONS * Use this discharge instruction sheet for instructions. * Take your medications at the time your doctor ordered. * Do not skip a dose of your medicines. * If you miss a dose of medicine, take as soon as possible, but DO NOT DOUBLE A DOSE. * Read your medicine information when you get home. * Know all of the side effects of your medicine. * Call your doctor's office if you have any side effects. * Be sure all of your doctors know what medicine and herbs you take (including cold, flu, and herbal medicine). * Pain Medicine: If you do not get relief from your pain, please call your doctor for help. Take the following with you to your follow-up doctor appointments: * Weight Chart * Medication List * List of questions Do not drink excessive alcohol, beer or wine. Pending Studies at Discharge: No Stand-Alone Forms: My [facility] [employer], Smoking Cessation Medications and DC Order Prescriptions: New atorvastatin 40 mg Tablet 80 mg PO PM Qty: 30 5RF clopidogrel 75 mg Tablet 75 mg PO QAM Qty: 90 3RF aspirin 81 mg Tablet,Delayed Release (Dr/Ec) 81 mg PO QAM Qty: 90 3RF metoprolol succinate 25 mg Tablet Extended Release 24 Hr 25 mg PO QAM Qty: 30 5RF Jardiance 10 mg Tablet 10 mg PO DAILY Qty: 30 5RF sacubitril-valsartan [Entresto] 24-26 mg Tablet 1 tab PO BID Qty: 60 5RF furosemide [Lasix] 20 mg tablet 20 mg PO UD Qty: 20 0RF Rx Instructions: take on advice from cardiology for weight gain 3 pound in one day or 5 pounds in one week Continued nicotine 7 mg/24 hr patch 24 hour 1 patch transdermal Q24H Qty: 28 2RF Patient Comments: "It's sporadic" Discharge Orders: Discharge Order (Routine); Ordered 07/12/25 Ordered By: Santana Ramírez/Other Patient Handouts: Furosemide Oral Solution, Prediabetes, Symptoms of a Heart Attack, Coronary Stents, What Is Heart Failure, Heart Failure Flare Up Signs, Heart Failure: Tracking Your Weight, 5 Steps for Eating Healthier, Coping with Heart Failure, Heart Failure Make Changes Diet, Heart Attack Dc, Limiting Fluids Dc, Heart Attack Meds, Warning Signs of a Heart Attack Admission Data Admit Date/Time: 07/08/25 14:07 Attending Provider: Santana Breaux Admit Provider: Isidoro Strong Primary Care Provider: Leighton Zaidi Other Providers: Tg Solorzano; Isidoro Strong; Malgorzata Victor; Anuradha Hopkins Other Interventions: Discharge Summary Assessment (RN) Last Done: 07/12/25 13:07 Hospital Stay Data Consultations 07/08/25 13:36 ED Decision to Admit Stat 07/08/25 15:23 Consult Service Station Manager Routine 07/08/25 15:32 Consult Cardiac Rehabilitation Routine 07/08/25 16:52 Consult Cardiology Stat 07/12/25 09:30 Consult Cardiac Rehabilitation Routine Procedures Performed Operation Date: 07/08/25 14:00 Actual Procedures p Cineradiography w/Routine Exam - Marvin Colunga MD s Aspiration/PCI w/GERRI for Stemi - Marvin Colunga MD Diagnostic Imagining Performed 07/08/25 13:53 CL Cath Imgs for PACS use only Stat Pending Results Patient Have Any Pending Studies at Discharge: No Discharge Instructions Given to Patient (Per Discharging Provider) please pace yourself as you recover. You should have close follow up with cardiology and become enrolled in cardiac rehab weigh youself to guage fluid retention and guide your outpatient doctors on medication adjustment eval your diet, opt for healthy whole foods and limit sugar intake stop smoking, this will be the second most important thing you do other than taking your mediaiton and keeping in touch with your doctors Total Time Total Time Spent Total Time Spent (In Minutes): It required greater than 30 minutes to prepare this patient for discharge. Coding Level of Care Code 34013 INP/OBS DISCH >[address] elevation myocardial infarction (STEMI) of anterior wall I21.09 Ischemic cardiomyopathy I25.5 Severe obstructive sleep apnea G47.33 Smoker F17.200 Acute heart failure with reduced ejection fraction (HFrEF) I50.21
== END 2025-07-12 18:35 | disposition home or self-care (01) | DRG 321 ==
LOC: ED 13:19 → SUATTDRO 14:07 → 1E 14:07 → 2E 07-09 12:31
DX: I50.21 Acute systolic (congestive) heart failure; E78.2 Mixed hyperlipidemia; G47.33 Obstructive sleep apnea (adult) (pediatric); H91.91 Unspecified hearing loss, right ear; H02.63 Xanthelasma of right eye, unspecified eyelid; Z88.5 Allergy status to narcotic agent; F17.210 Nicotine dependence, cigarettes, uncomplicated; I25.5 Ischemic cardiomyopathy; Z91.199 Patient's noncompliance with other medical treatment and regimen due to unspecified reason; I21.02 ST elevation (STEMI) myocardial infarction involving left anterior descending coronary artery; J96.01 Acute respiratory failure with hypoxia; H02.66 Xanthelasma of left eye, unspecified eyelid